=== PATIENT | male | born 1960 | race Caucasian/White ===

== ENCOUNTER 2025-02-13 15:06 | Outpatient (CLI) | payer OTHER, SELFPAY ==
--- NOTE | ~2025-02-13 | CT_ITS ---
CT of the Abdomen and Pelvis: Indication: Umbilical hernia Technique: 2.5 mm axial scans were obtained through the abdomen and pelvis following intravenous adm inistration of 100 cc of Omnipaque 350. Dose reduction technique was used on this scan by utilizing a utomated exposure control and iterative reconstruction technique. The dose-length product (DLP) was 9 02.57 mGy-cm. Findings: Scans through the lung bases are unremarkable. 3.6 x 1.7 cm hypodense, noncystic lesion at the inferior, posterior right hepatic lobe is suggestive of hemangioma with probable nodular peripheral enhancement. Additional scattered small hepatic cysts are present. The spleen, pancreas, gallbladder, adrenals and right kidney are within normal limits. S tatus post left nephrectomy. No evidence of aortic aneurysm. No lymphadenopathy. No bowel obstruction or bowel wall thickening. There is no evidence to suggest acute appendicitis. Sm all fat-containing umbilical hernia present. Images through the pelvis were performed. Urinary bladder unremarkable. Prostate gland minimally enla rged. No ascites. Impression: Small fat-containing umbilical hernia. Probable 3.6 x 1.7 cm hepatic hemangioma, as detailed above. Consider follow-up MR to confirm. Status post left nephrectomy. Reviewed, dictated and finalized at location . Impression: Small fat-containing umbilical hernia. Probable 3.6 x 1.7 cm hepatic hemangioma, as detailed above. Consider follow-up MR to confirm. Status post left nephrectomy.
[2025-02-13 15:29] LABS: Estimated Glomerular Filt Rate 41
== END 2025-02-13 15:07 | disposition home or self-care (01) ==
PROVIDERS: PCP Nurse Practitioner Family; Visit Provider Nurse Practitioner Family
DX: K42.9 Umbilical hernia without obstruction or gangrene (principal); Z85.528 Personal history of other malignant neoplasm of kidney; Z90.5 Acquired absence of kidney
CPT/HCPCS: 74177; Q9967

== ENCOUNTER 2025-05-13 06:37 | Outpatient (CLI) | payer OTHER, SELFPAY ==
--- NOTE | ~2025-05-13 | MR_ITS ---
EXAMINATION: MR abdomen wo/w con DATE: 05/22/2025 16:23 CDT INDICATION: Abnormal findings on CT of the abdomen and pelvis TECHNIQUE: Magnetic resonance imaging (MRI) of the abdomen was performed without intravenous contrast . Sequences included coronal T2-weighted SS-FSE, coronal and axial FS 2D-FIESTA, axial STIR FSE, axi al T2-weighted SS-FSE, axial T2-weighted FS SS-FSE, axial diffusion-weighted SE, axial dual-echo T1-w eighted FSPGR, and axial and coronal T1-weighted LAVA. Postcontrast axial T1-weighted LAVA images wer e obtained in a time course. Postcontrast coronal T1-weighted LAVA images were obtained. COMPARISON: CT examination of the abdomen and pelvis dated 02/13/2025 which demonstrated multiple hepa tic cysts and a probable hemangioma within segment 6 of the liver for which follow-up MRI was recomme nded for confirmation. FINDINGS: Within the area of prior imaging concern (segment 6 of the liver) is redemonstration of an irregularl y shaped well-circumscribed focus measuring 3.6 x 1.7 cm this focus demonstrates decreased signal int ensity prior to the administration of intravenous contrast and fills in on delayed sequences, consist ent with a hemangioma. No abnormal contrast enhancement is identified within the remainder of the liver. Multiple subcentimeter areas of increased signal intensity on water sensitive sequences, consistent w ith simple cysts. Redemonstration of a 15 mm cyst within the interpolar region of the right kidney, unchanged from prio r. No abnormal contrast enhancement or abnormal signal intensity within the left nephrectomy operativ e bed. IMPRESSION: Hemangioma within segment 6 of the liver. Multiple subcentimeter simple cysts within the remainder of the liver. 15 mm simple cyst within the interpolar region of the right kidney. Reviewed, dictated and finalized at location A.
--- OUTSIDE RECORDS SUMMARY | 2025-05-13 06:39 | XMS_ITS | Referral Summary ---
Author Organization [facility] Address [address] [place] [address] Care Team Providers Care Pharmacy Technology Instructor Name Role Phone Nimco Johnson NP Primary Care Provider [phone] Encounters Date Type Department Care Team Description 03/15/2025 8:58 AM CDT - 03/15/2025 11:59 PM CDT Hospital Encounter [facility] [address] [place] [phone] Martín Murphy MD Tendinitis of left rotator cuff (Primary Dx) Discharge Disposition: Discharge to home or self care 03/07/2025 Orders Only [facility] Orthopaedic Surgery [address] [facility] 12th [place] [address] [place] [phone] Darnell Law PA Tendinitis of left rotator cuff (Primary Dx) 03/05/2025 Results Follow-Up [facility] and [facility]opedic [place] [facility] - [facility] [address] [place] [phone] Darnell Law PA MRI Shoulder Left WO Contrast 03/05/2025 7:08 AM CDT - 03/05/2025 11:59 PM CDT Hospital Encounter [facility] [address] [place] [address] Tendinitis of left rotator cuff Discharge Disposition: Discharge to home or self care 02/27/2025 10:15 AM CDT Office Visit [facility] Orthopaedic Surgery [address] [facility] 2nd [address] [place] [address] Darnell Law PA Tendinitis of left rotator cuff (Primary Dx) 02/14/2025 4:56 PM CDT - 02/14/2025 11:59 PM CDT Hospital Encounter [facility] [address] [place] [address] Discharge Disposition: Discharge to home or self care from Last 3 Months Allergies No known active allergies Medications aspirin 81 mg enteric coated tablet Active omega 5-ewx-dgy-fish oil (Fish Oil) 100-160-1,000 mg capsule Active multivitamin-min -iron-FA-vit K (Bariatric Multivitamins) 45 mg iron- 800 mcg-120 mcg capsule Active atorvastatin (LIPITOR) 20 mg tablet Take 1 tablet (20 mg total) by mouth daily Active niacin 500 mg tablet Active Active Problems Problem Noted Date Diagnosed Date Benign colon polyp 03/24/2022 Overview (03/24/2022): Added automatically from request for surgery [id number] Primary malignant neoplasm of kidney 09/03/2013 Social History Tobacco Use Types Packs/Day Years Used Date Smoking Tobacco: Never Smokeless Tobacco: Never Tobacco Cessation:Counseling Given: Not Answered AUDIT-C Answer Date Recorded Q1: How often do you have a drink containing alc ohol? 2-3 times a week 09/03/2024 Q2: How many drinks containi ng alcohol do you have on a typical day when you are drinking? 3 or 4 09/03/2024 Frequency of Binge Drinking Not on file 08/17 Personal Safety Answer Date Recorded Have you ever been in or are you currently in a harmful physical or emotional relationship or is someone making you feel afraid or unsafe? Denies 03/15/2025 Sex and Gender Information Value Date Recorded Sex Assigned at Not on file Legal Sex Male 9:24 AM RESERVOIR ENGINEERING CONSULTANT Gender Identity Not on file Sexual Orientation Not on file Last Filed Vital Signs Vital Sign Reading Time Taken Comments Blood Pressure 156/90 03/15/2025 9:59 AM CDT Pulse 67 03/15/2025 9:59 AM CDT Temperature 36.3 C (97.3 F) 09/03/2024 10:40 AM RESERVOIR ENGINEERING CONSULTANT Respiratory Rate 16 03/15/2025 9:59 AM CDT Oxygen Saturation 98% 03/15/2025 9:59 AM CDT Inhaled Oxygen Concentration - - Weight 102.1 kg (225 lb) 02/27/2025 10:22 AM CDT Height 188 cm (6' 2) 02/27/2025 10:22 AM CDT Body Mass Index 28.89 02/27/2025 10:22 AM CDT Plan of Treatment Not on file Procedures Procedure Name Priority Date/Time Associated Diagnosis Comments FLUORO GUIDED INJECTION SHOULDER LEFT Schedule Routine, Read Routine (OP Routine) 03/15/2025 9:57 AM CDT Tendinitis of left rotator cuff MRI SHOULDER LEFT WO CONTRAST Schedule Routine, Read Routine (OP Routine) 03/05/2025 8:14 AM CDT Tendinitis of left rotator cuff CT BODY OUTSIDE REFERENCE Routine 02/14/2025 4:56 PM CDT COLONOSCOPY 09/03/2024 9:37 AM RESERVOIR ENGINEERING CONSULTANT from Last 3 Months or Most Recently Relevant to Health Maintenance Results * FL Fluoro Guided Injection Shoulder Left (GLENOHUMERAL JOINT) (03/15/2025 9:57 AM CDT) Narrative [facility] - 03/15/2025 9:58 AM CDT The images from this study are not interpreted by Radiology. Please refer to the physician's procedure / OR operative note. us Darnell GUPTA IMG FLUOROSCOPY PROCEDURES Madonna mayers Result [facility] * MRI Shoulder Left WO Contrast (03/05/2025 8:14 AM CDT) Anatomical Region Laterality Modality Upper Extremities Left Magnetic Reson ance 03/05/2025 10:5 0 AM CDT Impressions 03/05/2025 11:07 AM CDT Moderate left shoulder rotator cuff tendinopathy, with partial thickness articular sided tear of the supraspinatus. Dictated by: Andrew Knight MD The radiology attending physician has personally reviewed this study, and had reviewed and/or edited this written report and agrees with it. Electronically signed by: Emile Roberts M.D. Narrative 03/05/2025 11:07 AM CDT EXAMINATION: MRI SHOULDER LEFT WO CONTRAST HISTORY: Left anterolateral shoulder pain TECHNIQUE: Multisequence multiplanar magnetic resonance imaging of the left shoulder was performed without contrast. COMPARISON: Left shoulder radiographs 01/23/2025 FINDINGS: There is a type 2 acromion. The coracoacromial ligament is normal. There is no subacromial spur. There is mild acromioclavicular osteoarthritis. There is mild subacromial subdeltoid bursitis. There is moderate fatty atrophy of the teres minor. There is mild subscapularis tendinopathy, without tear. There is moderate supraspinatus and infraspinatus tendinopathy. There is a partial-thickness, articular sided tear of the supraspinatus at its footprint measuring approximately 20 mm AP and 6 mm TV. On this nonarthrographic evaluation, there is degeneration of the superior labrum without discrete identifiable tear. There is mild tendinopathy of the intra-articular biceps tendon, without tear. There is mild glenohumeral chondrosis. There is a physiologic amount of fluid within the glenohumeral joint. No loose bodies are identified. The bone marrow signal is normal. Procedure Note Emile Roberts MD - 03/05/2025 EXAMINATION: MRI SHOULDER LEFT WO CONTRAST HISTORY: Left anterolateral shoulder pain TECHNIQUE: Multisequence multiplanar magnetic resonance imaging of the left shoulder was performed without contrast. COMPARISON: Left shoulder radiographs 01/23/2025 FINDINGS: There is a type 2 acromion. The coracoacromial ligament is normal. There is no subacromial spur. There is mild acromioclavicular osteoarthritis. There is mild subacromial subdeltoid bursitis. There is moderate fatty atrophy of the teres minor. There is mild subscapularis tendinopathy, without tear. There is moderate supraspinatus and infraspinatus tendinopathy. There is a partial-thickness, articular sided tear of the supraspinatus at its footprint measuring approximately 20 mm AP and 6 mm TV. On this nonarthrographic evaluation, there is degeneration of the superior labrum without discrete identifiable tear. There is mild tendinopathy of the intra-articular biceps tendon, without tear. There is mild glenohumeral chondrosis. There is a physiologic amount of fluid within the glenohumeral joint. No loose bodies are identified. The bone marrow signal is normal. IMPRESSION: Moderate left shoulder rotator cuff tendinopathy, with partial thickness articular sided tear of the supraspinatus. Dictated by: Andrew Knight MD The radiology attending physician has personally reviewed this study, and had reviewed and/or edited this written report and agrees with it. Electronically signed by: Emile Roberts M.D. Darnell GUPTA IMG MRI PROCEDURES Final Result * CT Body Outside Reference (02/14/2025 4:56 PM CDT) Impressions [facility] - 02/14/2025 4:56 PM CDT These images are for Reference purposes only and have not been reviewed by [facility] Radiology. There will be no report generated by a [facility] Radiologist. Narrative [facility] - 02/14/2025 4:56 PM CDT EXAMINATION: Images For Reference Purposes Only Pat Reyes MD IMG CT PROCEDURES Final Resu lt [facility] * Colonoscopy (09/03/2024 9:37 AM RESERVOIR ENGINEERING CONSULTANT) Anatomical Region Laterality Modality Other Narrative Procedure Note Ramon Shah MD - 09/03/2024 9:37 AM CST [facility] ENDOSCOPY [facility] Patient Name: Loy Downs Procedure Date: 09/03/2024 9:37 AM Date of : 1960 Admit Type: Outpatient Age: 63 Gender: Male Attending MD: Yasmani Gipson Room: [facility] ENDOSCOPY ROOM 4 Note Status: Finalized Procedure: Colonoscopy Indications: High risk colon cancer surveillance: Personalhistory of multiple (3 or more) adenomas, High risk colon cancer surveillance: Personal history of sessile serrated colon polyp (less than 10 mm in size) withno dysplasia, Last colonoscopy: May 2022 Referring MD: Wellington Nixon D.O. Providers: Ramon Shah M.D., Liza Lloyd M.D. Medicines: Monitored Anesthesia Care Complications: No immediate complications. Estimated Blood Loss: Estimated blood loss was minimal. Procedure: Pre-Anesthesia Assessment: - Prior to the procedure, a History and Physicalwas performed, and patient medications, allergies and sensitivities were reviewed. The patient'stolerance of previous anesthesia was reviewed. - Immediately prior to administration ofmedications, the patient was re-assessed for adequacy to receive sedatives. - The risks and benefits of the procedure and the sedation options and risks were discussed with the patient. All questions were answered and informed consent was obtained. The benefits, risks and alternatives of theprocedure and sedation were discussed and informed consentwas obtained. All questions were answered. Please referto the signed informed consent document in the medical record. The scope was passed under direct vision.The CF [id number] endoscope was introduced through the anus and advanced to the terminal ileum, with identification of the appendiceal orifice and IC valve. The colonoscopy was performed without difficulty. The patient tolerated the procedurewell. The quality of the bowel preparation was evaluated using the BBPS ([place] Bowel Preparation Scale)with scores of: Right Colon = 3, Transverse Colon = 3and Left Colon = 3 (entire mucosa seen well with no residual staining, small fragments of stool oropaque liquid). The total BBPS score equals 9. The bowel preparation used was SUPREP via split dose instruction. The quality of the bowel preparationwas good. Findings: The perianal and digital rectal examinations were normal. Non-bleeding hemorrhoids were found during retroflexion. Thehemorrhoids were moderate. Multiple small and large-mouthed diverticula were found in thesigmoid colon. Five sessile polyps were found in the descending colon, transversecolon and cecum. The polyps were 3 to 6 mm in size. These polyps wereremoved with a cold snare. Resection and retrieval were complete. Two sessile polyps were found in the transverse colon and cecum. The polyps were 2 mm in size. These polyps were removed with a jumbo cold forceps. Resection and retrieval were complete. The exam was otherwise without abnormality on direct and retroflexion views. The terminal ileum appeared normal. Impression: - Non-bleeding hemorrhoids. - Diverticulosis in the sigmoid colon. - Five 3 to 6 mm polyps in the descending colon(1), in the transverse colon (3) and in the cecum (1), removed with a cold snare. Resected andretrieved. - Two 2 mm polyps in the transverse colon and inthe cecum, removed with a jumbo cold forceps. Resectedand retrieved. - The examination was otherwise normal on directand retroflexion views. - The examined portion of the ileum was normal. Recommendation: - Await pathology results. - Repeat colonoscopy in 3 years for surveillance of multiple polyps. - Return to referring physician as previously scheduled. - We performed biopsies during your proceduretoday. If you do not receive the result from my office in, please contact my office at [phone]. Attending Participation: I was present for the alcocer portions of this procedure and immediately available for all non-alcocer portions of the procedure. Electronically signed by Ramon Shah MD Ramon Shah M.D. 09/03/2024 10:40:01 AM . Number of Addenda: 0 Note Initiated On: 09/03/2024 9:37 AM Ramon Shah MD ENDOSCOPY PROCEDUR ES Final Result from Last 3 Months or Most Recently Relevant to Health Maintenance [place] [address] [place] [address] [facility] CHOICE PLUS [facility] CHOICE PLUS [facility] CHOICE PLUS Advance Directives For more information, please contact: [phone] * Full Code (Latest Code Status on File) Date Activated Date Inactivated Comments 09/03/2024 8:33 AM 09/03/2024 3:32 PM * Full Code Date Activated Date Inactivated Comments 05/18/2022 8:05 AM 05/18/2022 2:28 PM Care Teams Pharmacy Technology Instructor Relationship Specialty Start Date End Date Nimco Johnson NP [address] [place] [address] PCP - General Nurse Practitioner 01/23/25
--- OUTSIDE RECORDS SUMMARY | 2025-05-13 06:39 | XMS_ITS | Clinical Summary ---
Author Organization [facility] Address [address] [place] [address] Care Team Providers Care Infrastructure Engineer Name Role Phone Nimco Johnson NP Primary Care Provider [phone] Allergies No known active allergies Medications aspirin 81 mg enteric coated tablet Active omega 7-lwg-bdh-fish oil (Fish Oil) 100-160-1,000 mg capsule Active multivitamin-min -iron-FA-vit K (Bariatric Multivitamins) 45 mg iron- 800 mcg-120 mcg capsule Active atorvastatin (LIPITOR) 20 mg tablet Take 1 tablet (20 mg total) by mouth daily Active niacin 500 mg tablet Active Active Problems Problem Noted Date Diagnosed Date Benign colon polyp 03/24/2022 Overview (03/24/2022): Added automatically from request for surgery [id number] Primary malignant neoplasm of kidney 09/03/2013 Encounters Date Type Department Care Team Description 03/15/2025 8:58 AM CDT - 03/15/2025 11:59 PM CDT Hospital Encounter [facility] [address] [place] [address] Martín Murphy MD Tendinitis of left rotator cuff (Primary Dx) Discharge Disposition: Discharge to home or self care 03/07/2025 Orders Only [facility] Orthopaedic Surgery [address] [place] [address] 12th [place] [address] [place] [address] Darnell Law PA Tendinitis of left rotator cuff (Primary Dx) 03/05/2025 7:08 AM CDT - 03/05/2025 11:59 PM CDT Hospital Encounter [facility] Radiology [facility] the [facility] [address] [place] [address] Tendinitis of left rotator cuff Discharge Disposition: Discharge to home or self care 03/05/2025 Results Follow-Up [facility] and [facility] ([facility]) - [facility] [address] [place] [phone] Darnell Law PA MRI Shoulder Left WO Contrast 02/27/2025 10:15 AM CDT Office Visit [facility] Orthopaedic Surgery [address] [facility] 2nd [address] [place] [phone] Darnell Law PA Tendinitis of left rotator cuff (Primary Dx) 02/14/2025 4:56 PM CDT - 02/14/2025 11:59 PM CDT Hospital Encounter [facility] Rad[facility] [address] [place] [address] Discharge Disposition: Discharge to home or self care from Last 3 Months Surgical History Surgery Date Site/Laterality Comments NEPHRECTOMY Kidney Surgery Laparoscopic Radical Nephrectomy - 08-02-2013 path: RENAL CELL CARCINOMA, CLEAR CELL TYPE, WITH PAPILLARY FEATURES, MARIANNA (Added by TW Conv) BICEPS TENDON REPAIR 10/17/1994 - 10/16/1995 Left repair after rupture COLONOSCOPY TENDON REPAIR Right pectoral FLUORO GUIDED INJECTION SHOULDER LEFT 03/15/2025 Left Medical History Medical History Date Comments Personal history of other en docrine, nutritional and metabolic disease History of hyperchol esterolemia - (Added by TW Conv) Hyperlipidemia Colon polyp PONV (postoperative nausea a nd vomiting) Family History Medical History Relation Name Comments Heart disease Other 1 Heart Disease - father had NV (Added by TW Conv) Cancer Other 2 Cancer - mother lung cancer father had bladder cancer (Added by TW Conv) Bladder Cancer Other 3 Bladder Cance r - father (Added by TW Conv) Relation Name Status Comments Other 1 Other 2 Other 3 Social History Tobacco Use Types Packs/Day Years [...] on file Legal Sex Male 9:24 AM REGULATORY PRODUCT MANAGER Gender Identity Not on file Sexual Orientation Not on file Obstetrics History Last Filed Vital Signs Vital Sign Reading Time Taken Comments Blood Pressure 156/90 03/15/2025 9:59 AM CDT Pulse 67 03/15/2025 9:59 AM CDT Temperature 36.3 C (97.3 F) 09/03/2024 10:40 AM REGULATORY PRODUCT MANAGER Respiratory Rate 16 03/15/2025 9:59 AM CDT Oxygen Saturation 98% 03/15/2025 9:59 AM CDT Inhaled Oxygen Concentration - - Weight 102.1 kg (225 lb) 02/27/2025 10:22 AM CDT Height 188 cm (6' 2) 02/27/2025 10:22 AM CDT Body Mass Index 28.89 02/27/2025 10:22 AM CDT Plan of Treatment Health Maintenance Due Date Last Done Comments Depression Screening 1960 Hepatitis C Screening 1960 Prostate Cancer Screening-PSA 1960 DTaP/Tdap/Td Vaccine (1 - Tdap) 1971 Hepatitis B Screening 1978 Regular Well Visit/Exam 18-64 1978 Zoster Vaccine (1 of 2) 2010 Influenza Vaccine (#1) 2025 Colon Cancer Screening-Colonoscopy 09/03/2034 09/03/2024, 05/18/2022, 07/20/2016 Colon Cancer Screening-CT Colonography Discontinued 09/03/2024, 05/18/2022, 07/20/2016 Colon Cancer Screening-DNA Stool Discontinued 09/03/2024, 05/18/2022, 07/20/2016 Colon Cancer Screening-FIT Discontinued 09/03, 05/18/2022, 07/20/2016 Colon Cancer Screening-Sigmoidoscopy Discontinued 09/03/2024, 05/18/2022, 07/20/2016 Pneumococcal vaccine <65 Aged Out No longer eligible based on patient's age to complete this topic Procedures Procedure Name Priority Date/Time Associated Diagnosis Comments FLUORO GUIDED INJECTION SHOULDER LEFT Schedule Routine, Read Routine (OP Routine) 03/15/2025 9:57 AM CDT Tendinitis of left rotator cuff MRI SHOULDER LEFT WO CONTRAST Schedule Routine, Read Routine (OP Routine) 03/05/2025 8:14 AM CDT Tendinitis of left rotator cuff CT BODY OUTSIDE REFERENCE Routine 02/14/2025 4:56 PM CDT COLONOSCOPY 09/03/2024 9:37 AM REGULATORY PRODUCT MANAGER from Last 3 Months or Most Recently Relevant to Health Maintenance Results * FL Fluoro Guided Injection Shoulder Left (GLENOHUMERAL JOINT) (03/15/2025 9:57 AM CDT) Narrative [facility] - 03/15/2025 9:58 AM CDT The images from this study are not interpreted by Radiology. Please refer to the physician's procedure / OR operative note. us Darnell GUPTA IMG FLUOROSCOPY PROCEDURES Madonna l Result [facility] * MRI Shoulder Left WO [...] only and have not been reviewed by [facility] Radiology. There will be no report generated by a [facility] Radiologist. Narrative [facility] - 02/14/2025 4:56 PM CDT EXAMINATION: Images For Reference Purposes Only Pat Reyes MD IMG CT PROCEDURES Final Resu lt [facility] * Colonoscopy (09/03/2024 9:37 AM REGULATORY PRODUCT MANAGER) Anatomical Region Laterality Modality Other Narrative Procedure Note Ramon Shah MD - 09/03/2024 9:37 AM CST [facility] Patient Name: Loy Downs Procedure Date: 09/03/2024 9:37 AM Date of : 1960 Admit Type: Outpatient Age: 63 Gender: Male Attending MD: Yasmani Gipson Room: [facility] ENDOSCOPY ROOM 4 Note Status: Finalized Procedure: [...] scope was passed under direct vision.The CF [id number] endoscope was introduced through the anus and advanced to the terminal ileum, with identification of the appendiceal orifice and IC valve. The colonoscopy was performed without difficulty. The patient tolerated the procedurewell. The quality of the bowel preparation was evaluated using the BBPS ([place] Bowel Preparation Scale)with scores of: Right Colon [...] office in, please contact my office at [phone]. Attending Participation: I was present for the [...] Most Recently Relevant to Health Maintenance Insurance [facility] [place] [address] [place] [address] [facility] [employer] [employer] [employer] Advance Directives For more information, please contact: [phone] * Full Code (Latest Code Status on File) Date Activated Date Inactivated Comments 09/03/2024 8:33 AM 09/03/2024 3:32 PM * Full Code Date Activated Date Inactivated Comments 05/18/2022 8:05 AM 05/18/2022 2:28 PM Care Teams Infrastructure Engineer Relationship Specialty Start Date End Date Nimco Johnson NP [address] [place] [address] PCP - General Nurse Practitioner 01/23/25
--- OUTSIDE RECORDS SUMMARY | 2025-05-13 06:39 | XMS_ITS | Continuity of Care Document ---
Author Organization [facility] Address [address] [place] [address] [address] [place] [address] Phone Care Team Providers Care Clinical Documentation Specialist Name Role Phone Fantasma Santoro Unavailable Unavailable Procedures Procedure Date Progress Note Therapeutic Activities Neuromuscular Re-Ed Therapeutic Exercise Manual Therapy Hot or Cold Pack Therapeutic Activities Neuromuscular Re-Ed Manual Therapy Hot or Cold Pack Therapeutic Activities Neuromuscular Re-Ed Manual Therapy Hot or Cold Pack Therapeutic Activities Neuromuscular Re-Ed Manual Therapy Hot or Cold Pack Therapeutic Activities Neuromuscular Re-Ed Manual Therapy Hot or Cold Pack Therapeutic Activities Neuromuscular Re-Ed Manual Therapy Hot or Cold Pack Therapeutic Activities Neuromuscular Re-Ed Manual Therapy Hot or Cold Pack Doc neg elder mal no plan Identified as not an unhealthy alcohol u ser Not identified as unhealthy alcohol via screening OT Evaluation Low Complexity Therapeutic Activities Neuromuscular Re-Ed Hot or Cold Pack Advance Directives Directive Yes / No Effective Date File Name No Information Encounters Encounter Description Practice Location Reason(s) For Visit Diagnoses Date Provider Providers Copied on Encounter [facility] [address] [place] [address], [place], [place], [id number], tel:[phone] [place] No Information Edvin-0 4- 5 Thuan Meek. . [facility] [address] [place] [address], [place], [place], [id number], tel:[phone] [place] No Information February-1 2- 5 Thuan Meek. . Referring Provider: Darnell Law, [address] [place] [address] [address], [place], [address]. tel:[phone] [place] [address], [place], [place], [id number], tel:[phone] [place] No Information May-0 7- 5 Thuan Meek. . Referring Provider: Darnell Law, [address] [place] [address] [address], [place], [address]. tel:[phone] [place] [address] [address], [place], [place], [id number], tel:[phone] [place] No Information May-0 5- 5 Thuan Meek. . Referring Provider: Darnell Law, [address] [place] [address] [address], [place], [address]. tel:[phone] [place] [address], [place], [place], [id number], [place] tel:[phone] [place] No Information May-0 2-202 5 Thuan Meek. . Referring Provider: Darnell Law, [address] [place] [address] [address], [place], [address]. tel:[phone] [place] [address] [address], [place], [place], [id number], [place] tel:[phone] [place] No Information Jan-2 5 Thuan Meek. . Referring Provider: Darnell Law, [address] [facility] [address], [place], [address]. tel:[phone], [place], [place], [id number], tel:[phone] [place] No Information 5 Thuan Meek. . Referring Provider: Darnell Law, [address] [place] [address] [address], [place], [address]. tel:[phone], [place], [place], [id number], tel:[phone] [place] No Information 5 Thuan Meek. . Referring Provider: Darnell Law, [address] [place] [address] [address], [place], [address]. tel:[phone], [place], [place], [id number], tel:[phone] [place] No Information 5 Thuan Meek. . Referring Provider: Darnell Law, [address] [place] [address] [address], [place], [address]. tel:[phone] Family History Family Member Type Diagnosis Age At Onset No Information Payers Payer name Insurance type Covered democrat ID rejia cynthia(s) [facility] [id number] Social History Type Description Quantity Date Captured Comments Sex Male Smoking Status No Information Chief Complaint And Reason For Visit No Information Reason For Referral Reason For Referral No Information History Of Present Illness Encounter Date Complaint History Of Prese nt Illness No Information Functional Status Date Functional Assessmen t No Information Instructions Date Instruction Additional Infor mation No Information Assessments Type Assessment Date No Information Patient Care Teams Name Effective Dates (start - stop) Status Members No Information
--- OUTSIDE RECORDS SUMMARY | 2025-05-13 06:39 | XMS_ITS | Data Portability ---
Author Organization [facility] Address [address] [address] Care Team Providers Care Forest Patrolman Name Role Phone Unavailable Referring Provider Unavailable Assessment No assessment recorded. Plan of Treatment Reminders Order Date Submit Date Provider Last Modified By Organization Details Last Modified Time Details Appointments None record ed. Lab None record ed. Referral None record ed. Procedures None record ed. Surgeries None record ed. Imaging None record ed. Medication Orders None record ed. Patient TargetsNo targets recorded. Patient InstructionsNo instructions recorded. Reason for Referral None Reported. Procedures Surgical History Date Name Laterality Status Provider Name and Address Organization Details Recorded Time 03/08/2018 Sleep Study completed Sae Stone MD, F.C.C.P. [address] [place] [address], [place], [address], [facility] 03/09/2018 18:06:29 07/25/2017 Sleep Study completed Luis Alberto Chinchilla [facility]/ [facility] 07/26/2017 11:34:33 Imaging Results None recorded. Procedure Notes None recorded. Medical Equipment None Reported. Medications Name Sig Start Date Stop Date Status Note LastModified by Organization Details LastModified Time atorvastatin 20 mg tablet active Not Available Not Available Not Available Vitals Date Recorded Body height Body mass index (BMI) Body weight Provider Name and Address Organization Details Last Updated DateTime 03/08/2018 187.96 cm 30.6 kg/m2 311185.98 g Rena Oliver [facility] 03/09/2018 12:10:45 Date Recorded Body height Body mass index (BMI) Body weight Provider Name and Address Organization Details Last Updated DateTime 07/25/2017 187.96 cm 30.6 kg/m2 213354.98 g Rena Benito [place] [facility] 07/25/2017 12:30:27 Social History None recorded. Functional Status None recorded. Mental Status None recorded. Family History Nothing Reported. Medical History No medical history recorded. Past Encounters Encounter ID Performer Location Encounter Start Date Encounter Closed Date Diagnosis/Indication Diagnosis SNOMED-CT Code Diagnosis ICD10 Code Diagnosis Note [id number] [facility]y [employer]CONEX [employer] [facility] ([id number]) [id number] [facility] [address] [place] [address] 07/25/2017 11:31:16 07/26/2017 11:35:32 Obstructive sleep apnea of adult 9556617467 103 G47.33 [id number] Shorty [employer]CONEX [employer] [facility] ([id number]) [id number] [facility] [address] [place] [address] 03/08/2018 10:00:47 03/09/2018 17:29:53 Obstructive sleep apnea of adult 1378944340 103 G47.33 Health Concerns Section Related Observation LastModified by Organization Detai ls LastModified Time None Recorded Concern Status LastModified by Organization Details LastModified Time None Recorded Advance Directives Directive None Recorded Payers Insurance Date Sequence Insurance Name Policy Number Policy Paez Covered Member ID Paez Member ID Guarantor Name 10/23/2024 1 [facility] [id number] Loy Downs [id number] Loy oDwns
--- OUTSIDE RECORDS SUMMARY | 2025-05-13 06:40 | XMS_ITS ---
Author Organization [facility] Address [address] [place] [address] Care Team Providers Care Weight Loss Counselor Name Role Phone Nimco Johnson NP Primary Care Provider [phone] Active Problems Problem Noted Date Diagnosed Date Benign colon polyp 03/24/2022 Overview (03/24/2022): Added automatically from request for surgery [id number] Primary malignant neoplasm of kidney 09/03/2013 Current Treatment and Therapy Plans No current plan information found. Past Treatment and Therapy Plans No past plan information found. Lifetime Dose Tracking * Chemical Lifetime Dose Automatic Entry Manual Entr y Fluoro Time 0.117 minutes 0.117 minutes 0 minutes
== END 2025-05-13 06:38 | disposition home or self-care (01) ==
PROVIDERS: PCP Nurse Practitioner Family; Visit Provider Nurse Practitioner Family
DX: R93.5 Abnormal findings on diagnostic imaging of other abdominal regions, including retroperitoneum (principal); D18.09 Hemangioma of other sites; K76.89 Other specified diseases of liver; N28.1 Cyst of kidney, acquired
CPT/HCPCS: 74183; A9577